=== PATIENT | female | born 2000 | race Hispanic/Latino ===

== ENCOUNTER 2020-05-26 10:05 | Inpatient (IN) | payer MEDICAID ==
[~2020-05-26] VITALS: Ht 162.6 cm; Wt 92.1 kg
[2020-05-26 10:54] LABS: APPEARANCE,URINE CLOUDY (CLEAR); BILIRUBIN,URINE NEGATIVE (NEGATIVE); GLUCOSE, URINE (UA) NEGATIVE (NEGATIVE); KETONES,URINE NEGATIVE (NEGATIVE); LEUKOCYTE ESTERASE ,URINE NEGATIVE (NEGATIVE); NITRATE,URINE NEGATIVE (NEGATIVE); OCCULT BLOOD,URINE LARGE (NEGATIVE); PROTEIN,URINE TRACE mg/dL (NEGATIVE); UROBILINOGEN,URINE 0.2 mg/dL (0.2-1.0)
[2020-05-26 11:02] LABS: COLOR,URINE PINK (YELLOW)
[2020-05-26 11:16] VITALS: BP 132/76
[2020-05-26 11:29] LABS: RBC,URINE >100 /HPF (0-1)
[2020-05-26 11:30] LABS: BACTERIA,URINE Rare /HPF (None Seen); WBC,URINE 0-1 /HPF (0-1)
[2020-05-26] MEDS ORDERED: MEPERIDINE-PF 50 MG/ML SYG IVP PRN (12:00)
[2020-05-26] MEDS ORDERED: PROMETHAZINE HCL 25 MG/ML 1ML AMPULE IM PRN ×2 (12:00→23:30)
[2020-05-26] MEDS ORDERED: LACTATED RINGERS 500 ML 500 ML IV PRN (12:00)
[2020-05-26] MEDS ORDERED: OXYTOCIN-LR 20 UNITS/1000 ML 1,000 ML IV SCH (12:00)
[2020-05-26] MEDS ORDERED: ROPIVACAINE 0.2% 100ML VIAL 100 ML EP PRN (12:00)
[2020-05-26] MEDS ORDERED: EPHEDRINE SULFATE 50 MG/ML AMPULE IVP PRN (12:00)
[2020-05-26] MEDS ORDERED: NALOXONE HCL 0.4 MG/1 ML ML IV PRN (12:00)
[2020-05-26] MEDS ORDERED: OXYTOCIN-LR 20 UNITS/1000 ML 1,000 ML IV ONE (12:04)
[2020-05-26] MEDS: LACTATED RINGERS 1000ML 1,000 ML IV PRN ×2 (15:06→15:49)
[2020-05-26 15:34] LABS: HEMATOCRIT 33.7 % (36-48); MEAN CORPUSCULAR HEMOGLOBIN 29.1 pg (27.0-33.0); MEAN CORPUSCULAR HGB CONC 33.5 g/dL (32.0-36.0); MEAN CORPUSCULAR VOLUME 86.9 fL (80-100); RED BLOOD CELL COUNT(AUTO) 3.88 MIL/uL (4.00-5.50); RED CELL DISTRIBUTION WIDTH 14.6 % (11.0-15.5); WHITE BLOOD COUNT (AUTO) 8.5 K/uL (4.8-10.8)
[2020-05-26] MEDS ORDERED: LIDOCAINE HCL MPF 1% 5ML VIAL ONE (19:03)
[2020-05-26] MEDS ORDERED: MISOPROSTOL 200 MCG TABLET ONE (20:10)
[2020-05-26] MEDS ORDERED: LIDOCAINE HCL 1% 20 ML VIAL ONE (20:11)
[2020-05-26] MEDS ORDERED: CEFAZOLIN SODIUM 1 GM VIAL ONE (21:55)
[2020-05-26] MEDS ORDERED: LACTATED RINGERS 1000ML 1,000 ML IV SCH (22:00)
[2020-05-26] MEDS ORDERED: CEFAZOLIN SODIUM 1 GM VIAL IVP PRN (22:00)
[2020-05-26] MEDS ORDERED: ONDANSETRON 4MG INJ ONE (22:20)
[2020-05-26] MEDS ORDERED: EPHEDRINE SULFATE 50 MG/ML AMPULE ONE (22:20)
[2020-05-26] MEDS ORDERED: DEXAMETHASONE SOD PHOSPHATE 10MG/ML 1ML VIAL ONE (22:20)
[2020-05-26] MEDS ORDERED: OXYTOCIN 10 UNIT/1ML 10ML VIAL ONE (22:20)
[2020-05-26] MEDS ORDERED: MORPHINE PF 100MG/10ML AMP IV ONE (22:20)
[2020-05-26] MEDS ORDERED: CEFAZOLIN SODIUM 1 GM VIAL IVP ONE (22:32)
[2020-05-26] MEDS ORDERED: MEPERIDINE-PF 75 MG/ML SYG IM PRN (23:30)
[2020-05-26] MEDS ORDERED: 0.9%NACL 10ML VIAL IVP PRN (23:30)
[2020-05-26] MEDS ORDERED: DEXTROSE 5 %-0.45 % NACL 1,000 ML IV PRN (23:30)
[2020-05-26] MEDS ORDERED: ACETAMINOPHEN WITH CODEINE 1 TAB TAB PO PRN (23:30)
[2020-05-26] MEDS ORDERED: OXYTOCIN-LR 20 UNITS/1000 ML 1,000 ML IV PRN (23:30)
[2020-05-27] VITALS (7 sets, daily range): BP systolic 106–129; BP diastolic 49–72
[2020-05-27 06:12] LABS: HEPATITIS Bs ANTIGEN SCREEN P Negative (Negative)
[2020-05-27 06:29] LABS: HEMATOCRIT 30.5 % (36-48); MEAN CORPUSCULAR HEMOGLOBIN 29.3 pg (27.0-33.0); MEAN CORPUSCULAR HGB CONC 33.8 g/dL (32.0-36.0); MEAN CORPUSCULAR VOLUME 86.9 fL (80-100); RED BLOOD CELL COUNT(AUTO) 3.51 MIL/uL (4.00-5.50); RED CELL DISTRIBUTION WIDTH 14.3 % (11.0-15.5); WHITE BLOOD COUNT (AUTO) 23.5 K/uL (4.8-10.8)
[2020-05-27] MEDS ORDERED: PREN1COM14 PO (07:44)
[2020-05-27] MEDS ORDERED: BISACODYL 10 MG SUPP.RECT RC PRN (08:45)
[2020-05-27] MEDS ORDERED: SIMETHICONE 80 MG TAB.CHEW PO PRN (08:45)
[2020-05-27] MEDS ORDERED: 0.9%NACL 10ML VIAL IVP PRN (08:45)
[2020-05-27] MEDS ORDERED: DIPH,PERTUSS(ACELL),TET VAC/PF 0.5 ML VIAL IM SCH (08:45)
[2020-05-27] MEDS ORDERED: ACETAMINOPHEN WITH CODEINE 1 TAB TAB PO PRN (08:45)
[2020-05-27] MEDS ORDERED: IBUPROFEN 800 MG TAB ONE (09:15)
[2020-05-27] MEDS ORDERED: SIMETHICONE 80 MG TAB.CHEW ONE (09:15)
[2020-05-27] MEDS ORDERED: DOCUSATE SODIUM 100 MG CAP PO ONE (09:16)
[2020-05-27] MEDS: IBUPROFEN 800 MG TAB PO PRN ×2 (15:10→23:04)
[2020-05-27] MEDS: DOCUSATE SODIUM 100 MG CAP PO PRN (20:31)
[2020-05-28] MEDS: HYDROCODONE/ACETAMINOPHEN 5/325 MG TAB PO PRN ×2 (01:36→10:39)
[2020-05-28 02:44] VITALS: BP 119/51
[2020-05-28] MEDS: IBUPROFEN 800 MG TAB PO PRN (06:26)
[2020-05-28 08:00] VITALS: BP 123/72
[2020-05-28] MEDS: DOCUSATE SODIUM 100 MG CAP PO PRN (09:12)
[2020-05-28 11:45] VITALS: BP 125/74
[2020-05-28] MEDS ORDERED: ACET1TAB25 PO (12:01)
== END 2020-05-28 13:20 | disposition home or self-care (01) | DRG 540 ==
LOC: LDH 10:05 → WSH 05-27 02:17 → PREOBSVTOIN 06-04 10:04
PROVIDERS: ADMIT Specialist; ATTEND Specialist
PROC: 10907ZC Drainage of Amniotic Fluid, Therapeutic from Products of Conception, Via Natural or Artificial Opening (ICD-10-PCS; 2020-05-26)
PROC: 3E033VJ Introduction of Other Hormone into Peripheral Vein, Percutaneous Approach (ICD-10-PCS; 2020-05-26)
PROC: 3E0R3BZ Introduction of Anesthetic Agent into Spinal Canal, Percutaneous Approach (ICD-10-PCS; 2020-05-26)
PROC: 00HU33Z Insertion of Infusion Device into Spinal Canal, Percutaneous Approach (ICD-10-PCS; 2020-05-26)
PROC: 10D00Z1 Extraction of Products of Conception, Low, Open Approach (ICD-10-PCS; principal; 2020-05-26 22:26)
PROC: 3E0234Z Introduction of Serum, Toxoid and Vaccine into Muscle, Percutaneous Approach (ICD-10-PCS; 2020-05-27)
DX: O62.1 Secondary uterine inertia (principal); Z3A.38 38 weeks gestation of pregnancy; Z37.0 Single live birth; Z23 Encounter for immunization
CPT/HCPCS: 36415; 59510; 81001; 85027; 86592; 86850; 86900; 86901; 87340; A4314; A4344; G0378; J0690; J1100; J2274; J2405; J2590; J2795; J3490; J7042; J7120

== ENCOUNTER 2020-06-07 17:59 | Emergency (ER) | payer MEDICAID ==
[~2020-06-07 17:59] MED LIST: ACET1TAB25 PO; PREN1COM14 PO
[2020-06-07] MEDS ORDERED: DOXYCYCLINE HYCLATE 100 MG TABLET PO ONE (19:24)
== END 2020-06-07 20:18 | disposition home or self-care (01) ==
LOC: EDH 17:59
DX: O90.0 Disruption of cesarean delivery wound (principal); Z98.890 Other specified postprocedural states